=== PATIENT | female | born 1985 ===

== ENCOUNTER 2018-12-10 08:39 | Emergency (ER) | payer MEDICAID, OTHER ==
[2018-12-10 08:44] VITALS: BMI 28.8
[2018-12-10 08:46] VITALS: BP 117/81; PULSE 81; RESP 16; TEMP 97.5; O2SAT 97
--- NOTE | 2018-12-10 09:39 | C.PDOC ---
History Of Present Illness 33 y/o female presents to the ER c/o right knee and right second toe pain after a fall last night. Pt reports she was getting out of the car when she tripped on an uneven sidewalk and fell onto her right knee. Pt denies head injury, LOC, sensory changes, extremity weakness. Patient is UTD with tetanus vaccination. Time Seen by Provider: 12/10/18 08:45 Chief Complaint (Nursing): Lower Extremity Problem/Injury History Per: Patient History/Exam Limitations: no limitations Onset/Duration Of Symptoms: Days (x1) Current Symptoms Are (Timing): Still Present Severity: Moderate - Knee Description Of Injury: Fell Past Medical History Reviewed: Historical Data, Nursing Documentation, Vital Signs Vital Signs: Last Vital Signs Temp 97.5 F L 12/10/18 08:45 Pulse 81 12/10/18 08:45 Resp 16 12/10/18 08:45 BP 117/81 12/10/18 08:45 Pulse Ox 97 12/10/18 08:45 - Medical History PMH: Asthma (seasonal as per patient) Family History: States: No Known Family Hx - Social History Hx Alcohol Use: No Hx Substance Use: No - Immunization History Hx Influenza Vaccination: No Review Of Systems Constitutional: Negative for: Fever, Other (LOC) Cardiovascular: Negative for: Chest Pain, Palpitations Respiratory: Negative for: Shortness of Breath Musculoskeletal: Positive for: Other (right knee and right second toe pain). Negative for: Neck Pain Skin: Negative for: Rash Neurological: Negative for: Headache, Dizziness Physical Exam - Physical Exam Appears: Well, Non-toxic, No Acute Distress Skin: Warm, Dry Head: Atraumatic, Normacephalic Eye(s): bilateral: Normal Inspection Chest: Symmetrical, No Tenderness Cardiovascular: Rhythm Regular Respiratory: Normal Breath Sounds, No Rales, No Rhonchi, No Wheezing Extremity: Normal ROM (right knee, right ankle, right toes), Tenderness (right knee tenderness to palpation at patellar area; tenderness to palpation at right second toe. ), No Pedal Edema, No Calf Tenderness, Capillary Refill (< 2sec all digits ), No Deformity, No Swelling, Other (approx 2 cm abrasion on right knee; right second toe <0.5cm small abrasion) Pulses: Left Dorsalis Pedis: Normal, Right Dorsalis Pedis: Normal Neurological/Psych: Oriented x3, Normal Motor, Normal Sensation Gait: Steady ED Course And Treatment O2 Sat by Pulse Oximetry: 97 (RA) Pulse Ox Interpretation: Normal - Other Rad right foot X-Ray: Read By Radiologist Interpretation: Accession No. : [id number]. Patient Name / ID : SAM Nicolas / [id number]. Exam Date : 12/10/2018 09:11:48 ( Approved ). Study Comment : Sex / Age : F / 33Y. Creator : Andree Gibbons MD. Dictator : Andree Gibbons MD. Aging Box Hand : Digital Marketing Officer : Andree Gibbons MD. Approver2 : Report Date : 12/10/2018 10:09:18. My Comment : . Date of service: 12/10/2018. PROCEDURE: Right Foot Radiographs. HISTORY: right 2nd toe pain after fall. COMPARISON: None. TECHNIQUE: 3 views obtained. FINDINGS: BONES: Bone alignment and mineralization are normal. There is no acute displaced fracture or bone destruction. JOINTS: Normal. SOFT TISSUES: Normal. OTHER FINDINGS: None. IMPRESSION: No acute fracture or dislocation. right knee X-Ray: Read By Radiologist Interpretation: Accession No. : [id number]. Patient Name / ID : SAM Nicolas / [id number]. Exam Date : 12/10/2018 09:01:53 ( Approved ). Study Comment : Sex / Age : F / 33Y. Creator : Andree Gibbons MD. Dictator : Andree Gibbons MD. Aging Box Hand : Digital Marketing Officer : Andree Gibbons MD. Ap prover2 : Report Date : 12/10/2018 10:08:14. My Comment : . Date of service: 12/10/2018. PROCEDURE: Right Knee Radiographs. HISTORY: Right knee pain after fall. COMPARISON: 04/08/2017. TECHNIQUE: 3 views obtained. FINDINGS: BONES: Bone alignment and mineralization are normal. There is no acute displaced fracture or bone destruction. JOINTS: Normal. No osteoarthritis. JOINT EFFUSION: There is a small suprapatellar joint effusion. OTHER FINDINGS: None. IMPRESSION: No acute displaced fractu re or dislocation. Progress Note: Patient given PO Ibuprofen. Xrays of right knee and right toe ordered and reviewed. Reevaluation Time: 09:45 Reassessment Condition: Improved (Patient reassessed, is resting comfortably and pain has improved. Patient able to ambulate normally in the ED. She was given Rx for ibuprofen and instructed to follow up with PMD in 1-2 days. She understands she should return to ED if symptoms worsen.) Disposition Counseled Patient/Family Regarding: Studies Performed, Diagnosis, Need For Followup, Rx Given - Disposition Referrals: Akin Rodrigez MD [Staff Provider] - Disposition: HOME/ ROUTINE Disposition Time: 09:45 Condition: STABLE Prescriptions: Ibuprofen [Motrin Tab] 600 mg PO Q6 PRN #30 tab PRN Reason: fever/pain Instructions: Knee Sprain (DC), Toe Injury (DC) Forms: [employer] (Welsh) Print Language: INDONESIAN - Clinical Impression Clinical Impression: Multiple abrasions, Right knee sprain, Sprain of toe, second, right - Scribe Statement The provider has reviewed the documentation as recorded by the Scribmaryuri Ordonez Do Provider Attestation: All medical record entries made by the Scribe were at my direction and personally dictated by me. I have reviewed the chart and agree that the record accurately reflects my personal performance of the history, physical exam, medical decision making, and the department course for this patient. I have also personally directed, reviewed, and agree with the discharge instructions and disposition.
--- NOTE | 2018-12-10 10:12 | RAD ---
Date of service: 12/10/2018 PROCEDURE: Right Knee Radiographs. HISTORY: Right knee pain after fall COMPARISON: 04/08/2017. TECHNIQUE: 3 views obtained. FINDINGS: BONES: Bone alignment and mineralization are normal. There is no acute displaced fracture or bone destruction. JOINTS: Normal. No osteoarthritis. JOINT EFFUSION: There is a small suprapatellar joint effusion. OTHER FINDINGS: None. IMPRESSION: No acute displaced fracture or dislocation.
--- NOTE | 2018-12-10 10:13 | RAD ---
Date of service: 12/10/2018 PROCEDURE: Right Foot Radiographs. HISTORY: right 2nd toe pain after fall COMPARISON: None. TECHNIQUE: 3 views obtained. FINDINGS: BONES: Bone alignment and mineralization are normal. There is no acute displaced fracture or bone destruction. JOINTS: Normal. SOFT TISSUES: Normal. OTHER FINDINGS: None. IMPRESSION: No acute fracture or dislocation.
== END 2018-12-10 09:48 | disposition home or self-care (01) ==
LOC: C.ER 08:39
DX: S83.91XA Sprain of unspecified site of right knee, initial encounter (principal); S93.504A Unspecified sprain of right lesser toe(s), initial encounter; S80.211A Abrasion, right knee, initial encounter; S90.414A Abrasion, right lesser toe(s), initial encounter; W01.0XXA Fall on same level from slipping, tripping and stumbling without subsequent striking against object, initial encounter; Y92.480 Sidewalk as the place of occurrence of the external cause